=== PATIENT | male | born 1980 | race Caucasian/White ===

== ENCOUNTER 2017-02-22 15:37 | Emergency (ER) | payer SELFPAY ==
[2017-02-22 15:49] VITALS: BMI 35.7
[2017-02-22] MEDS ORDERED: NS 1000 ML 1,000 ML IV ONE (15:53)
--- NOTE | 2017-02-22 15:53 | DR.CP ---
HPI - Time Seen Time seen: 15:45 - PCP Primary Care Physician: [facility] - Complaint Chief Complaint Doctor Comments: Patient presents with complaint of increasing dyspnea since yesterday. He has a history of tachycardia and has been evaluated by digital pre press operator at [facility] since without etiology of his tachycardia or dyspnea. He got his influenza shot and admits to 1/2pack per day cigarettes. Patients chest pain level is 4-5; usually 2-3. Patient also admits to having an anxiety disorder and has been seeing a psychiatrist since 2008. There is a history of cardiac disease on his mothers side and his brother has sarcoidosis. Chief Complaint:: PT PRESENTS VERY ANXIOUS AND BREATHING DEEP C/O HAVING CP FOR A WHILE AND THAT HE HAS BEEN SEEN BY A STREET PHOTOGRAPHER AT [facility] AND HE HAS BEEN WORKED UP AT [facility] AND NO CARDIAC ABN WAS FOUND AND PT STATES HE HAS A HX OF TACKYCARDIA,, PT STATES WHEN HE DOES HAVE CP ITS NORMALLY A 2 TODAY ITS A FIVE AND IT IS ACCOMPANIED BY DIZZINESS".. - Source History Provided: Patient - Mode of Arrival Mode of Arrival: Ambulatory - Timing Onset of Chief Complaint: 02/21/17 - Location Chest Pain Radiation Location: None - Associated Signs and Symptoms Associated Signs and Symptoms: Shortness of Breath PMH - PMH Past Medical History: No Past Surgical History: No - Family History History of Family Medical Conditions: No - Social History Does patient currently use any type of tobacco product: Yes Have you used tobacco products in the last 12 months: Yes Type of Tobacco Use: Cigarettes Does any household member use tobacco: No Alcohol Use: None Do you use any recreational Drugs:: No Lives With: Family Lives Where: Home - infectious screening In the last 2 months have you had wt loss of >10#?: NO Have you had fever, night sweats or hemotysis?: No Have you traveled outside the country in the last 6 months?: No Isolation: Standard ROS - Review of Systems Eyes: No Symptoms Reported ENTM: No Symptoms Reported Respiratoy: No Symptoms Reported Cardiovascular: No Symptoms Reported Genitourinary: No Symptoms Reported Neurological: No Symptoms Reported Musculoskeletal: No Symptoms Reported Integumentary: No Symptoms Reported Hematologic/Lymphatic: No Symptoms Reported Endocrine: No Symptoms Reported Psychiatric: No Symptoms Reported All Other Systems: Reviewed and Negative PE - Vitals Vitals: Pulse Rate [Apical] 60 Pulse Rate 114 Respiratory Rate 20 Blood Pressure [Right Arm] 122/77 Blood Pressure 130/81 O2 Sat by Pulse Oximetry 97 - General General Appearance: Alert, In No Apparent Distress - Head Head Exam: Normal Inspection, Atraumatic - Eyes Eye exam: Normal Appearance, PERRL, EOMI - ENT ENT Exam: Normal Exam - Chest Chest Inspection: Normal Inspection, Symmetric Chest Wall Rise - Respiratory Respiratory Exam: Normal Lung Sounds Bilat Respiratory Exam: Bilateral Clear to Auscultation - Cardiovascular Cardiovascular Exam: Regular Rate, Normal Rhythm Pulse: Normal Edema: Normal - Abdominal Exam Abdominal Exam: Normal Inspection, Normal Bowel Sounds Abdominal Tenderness: negative: RUQ, RLQ, LUQ, LLQ, Epigastrium, Suprapubic, Diffuse, Mild, Moderate, Severe, Other - Extremities Extremities Exam: Normal Inspection, Full ROM - Back Back Exam: Normal Inspection, Full ROM - Neurologic Neurological Exam: Alert, Oriented X3, CN II-XII Intact - Psychiatric Psychiatric Exam: Normal Affect, Anxious - Skin Skin Exam: Warm, Dry, Intact Course - Reevaluation 1st: Improved - Education/Counseling Educated On: Treatment, Diagnosis, Prognosis, Needs for Follow Up ROR - Labs Reviewed Laboratory Results Reviewed?: Yes (D Dimer <100) Result Diagrams: 02/22/17 16:08 02/22/17 16:08 Laboratory: WBC 9.7 X10^3/uL (3.6-10.0) 02/22/17 16:08 RBC 4.90 X10^6/uL (4.7-6.0) 02/22/17 16:08 Hgb 15.5 g/dL (13.5-18.0) 02/22/17 16:08 Hct 43.7 % (42.0-54.0) 02/22/17 16:08 MCV 89.2 fL (80.0-100.0) 02/22/17 16:08 MCH 31.7 pg (27.0-34.0) 02/22/17 16:08 MCHC 35.5 g/dL (33.0-35.0) H 02/22/17 16:08 RDW 13.3 % (11.6-16.5) 02/22/17 16:08 Plt Count 352 X10^3/uL (150.0-450.0) 02/22/17 16:08 MPV 7.9 fL (7.4-11.0) 02/22/17 16:08 Neut % 54.8 % (42.0-75.0) 02/22/17 16:08 Lymph % 32.3 % (21.0-51.0) 02/22/17 16:08 Worth % 5.6 % (0.0-13.0) 02/22/17 16:08 Eos % 6.0 % (0.9-2.9) H 02/22/17 16:08 Baso % 1.3 % (0.2-1.0) H 02/22/17 16:08 Neut # 5.3 x10^3/uL (2.2-4.8) H 02/22/17 16:08 Lymph # 3.1 X10^3/uL (1.3-2.9) H 02/22/17 16:08 Worth # 0.5 x10^3/uL (0.3-0.8) 02/22/17 16:08 Eos # 0.6 x10^3/uL (0.0-0.2) H 02/22/17 16:08 Baso # 0.1 X10^3/uL (0.0-0.1) 02/22/17 16:08 Absolute Nucleated RBC 0.1 /100WBC 02/22/17 16:08 D-Dimer < 100 ng/mL (0-400) 02/22/17 16:08 Sodium 141 mmol/L (136-145) 02/22/17 16:08 Corrected Sodium 142 mmol/L (136-145) 02/22/17 16:08 Potassium 3.6 mmol/L (3.5-5.1) 02/22/17 16:08 Chloride 105 mmol/L (98-107) 02/22/17 16:08 Carbon Dioxide 23.4 mmol/L (21-32) 02/22/17 16:08 BUN 11 mg/dL (7-18) 02/22/17 16:08 Creatinine 1.14 mg/dL (0.70-1.30) 02/22/17 16:08 Est GFR (MDRD) Af Amer > 60 (>60) 02/22/17 16:08 Est GFR (MDRD) Non-Af > 60 (>60) 02/22/17 16:08 Glucose 133 mg/dL (65-99) H 02/22/17 16:08 Calcium 8.7 mg/dL (8.5-10.1) 02/22/17 16:08 Corrected Calcium TNP 02/22/17 16:08 Total Bilirubin 0.20 mg/dL (0.2-1.0) 02/22/17 16:08 AST 29 Units/L (15-37) 02/22/17 16:08 ALT 68 Units/L (12-78) 02/22/17 16:08 Alkaline Phosphatase 72 Units/L (46-116) 02/22/17 16:08 Creatine Kinase 86 Units/L (39-308) 02/22/17 16:08 CK-MB (CK-2) < 1.0 ng/mL (0-4.0) 02/22/17 16:08 CK/CKMB % Calc 1.2 % (<4) 02/22/17 16:08 Troponin I < 0.02 ng/mL (0-1.5) 02/22/17 16:08 C-Reactive Protein 0.60 mg/L (0-3.0) 02/22/17 16:08 Total Protein 7.1 g/dL (6.4-8.2) 02/22/17 16:08 Albumin 3.8 g/dL (3.4-5.0) 02/22/17 16:08 Globulin 3.3 g/dL (2.5-4.5) 02/22/17 16:08 Albumin/Globulin Ratio 1.2 Ratio (1.1-2.1) 02/22/17 16:08 Influenza Type A (PCR) Negative (NEGATIVE) 02/22/17 16:07 Influenza Type B (PCR) Negative (NEGATIVE) 02/22/17 16:07 - XRAY XRAY Interpreted by: Radiologist (Chest: No abnormality identified) - Diagnosis Discharge Problem: Panic attack - Discharge Plan Condition: Stable - Follow ups/Referrals Follow ups/Referrals: NFD,None [STAFF PHYSICIAN] - 3 days - Instructions
[2017-02-22] MEDS ORDERED: NS 1000 ML 1,000 ML ONE (16:06)
[2017-02-22 16:19] LABS: BASOPHILS # (AUTO) 0.1 X10^3/uL (0.0-0.1); BASOPHILS % (AUTO) 1.3 % (0.2-1.0); EOSINOPHILS # (AUTO) 0.6 x10^3/uL (0.0-0.2); HEMATOCRIT 43.7 % (42.0-54.0); HEMOGLOBIN 15.5 g/dL (13.5-18.0); LYMPHOCYTES # (AUTO) 3.1 X10^3/uL (1.3-2.9); LYMPHOCYTES % (AUTO) 32.3 % (21.0-51.0); MEAN CORPUSCULAR HEMOGLOBIN 31.7 pg (27.0-34.0); MEAN CORPUSCULAR HGB CONC 35.5 g/dL (33.0-35.0); MEAN CORPUSCULAR VOLUME 89.2 fL (80.0-100.0); MEAN PLATELET VOLUME 7.9 fL (7.4-11.0); MONOCYTES # (AUTO) 0.5 x10^3/uL (0.3-0.8); MONOCYTES % (AUTO) 5.6 % (0.0-13.0); NEUTROPHILS # (AUTO) 5.3 x10^3/uL (2.2-4.8); NEUTROPHILS % (AUTO) 54.8 % (42.0-75.0); PLATELET COUNT 352 X10^3/uL (150.0-450.0); RED CELL DISTRIBUTION WIDTH 13.3 % (11.6-16.5); WHITE BLOOD COUNT 9.7 X10^3/uL (3.6-10.0)
[2017-02-22 16:36] LABS: BLOOD UREA NITROGEN 11 mg/dL (7-18); CALCIUM 8.7 mg/dL (8.5-10.1); CARBON DIOXIDE 23.4 mmol/L (21-32); CHLORIDE 105 mmol/L (98-107); COR NA(FOR HYPERGLY) 142 mmol/L (136-145); CREATININE 1.14 mg/dL (0.70-1.30); SODIUM 141 mmol/L (136-145); TROPONIN I < 0.02 ng/mL (0-1.5); eGFR BLACK RACES > 60 (>60); eGFR NON BLACK RACES > 60 (>60)
--- NOTE | 2017-02-22 16:39 | RAD ---
Examination: Portable AP chest History: Chest pain dyspnea Findings: Normal heart size with clear lungs and pleural spaces. Impression: No abnormality demonstrated. Reported By:
[2017-02-22 16:41] LABS: ALANINE AMINOTRANSFERASE 68 Units/L (12-78); ALBUMIN 3.8 g/dL (3.4-5.0); ALKALINE PHOSPHATASE 72 Units/L (46-116); ASPARTATE AMINO TRANSFERASE 29 Units/L (15-37); CKMB % 1.2 % (<4); CREATINE KINASE 86 Units/L (39-308); CREATINE KINASE MB < 1.0 ng/mL (0-4.0); TOTAL PROTEIN 7.1 g/dL (6.4-8.2)
[2017-02-22] MEDS ORDERED: ATIVAN INJ 2 MG VIAL IVP ONE (17:07)
[2017-02-22 17:12] VITALS: BP 114/69
== END 2017-02-22 17:13 | disposition home or self-care (01) ==
LOC: ER 15:58
DX: F41.0 Panic disorder [episodic paroxysmal anxiety] (principal)
CPT/HCPCS: 36415; 71010; 80053; 82550; 82553; 84484; 85025; 85378; 86140; 87502; 93005; 93010; 96365; 99283; A4222

== ENCOUNTER 2021-07-20 12:36 | Inpatient (IN) ==
[2021-07-20] MEDS ORDERED: NS 1,000 ML IV 1,000 ML ONE (13:03)
[2021-07-20] MEDS ORDERED: ZOFRAN INJ 4 MG VIAL ONE ×2 (13:03→17:55)
[2021-07-20] MEDS ORDERED: NS 1,000 ML IV 1,000 ML IV ONE (13:09)
[2021-07-20] MEDS ORDERED: ZOFRAN INJ 4 MG VIAL IVP ONE ×2 (13:09→17:06)
[2021-07-20 14:01] LABS: BASOPHILS % (AUTO) 0.2 % (0.2-1.0); EOSINOPHILS # (AUTO) 0.6 x10^3/uL (0.0-0.2); EOSINOPHILS % (AUTO) 3.1 % (0.9-2.9); HEMATOCRIT 47.9 % (42.0-54.0); HEMOGLOBIN 16.1 g/dL (13.5-18.0); LYMPHOCYTES # (AUTO) 0.7 X10^3/uL (1.3-2.9); LYMPHOCYTES % (AUTO) 3.7 % (21.0-51.0); MEAN CORPUSCULAR HEMOGLOBIN 30.5 pg (27.0-34.0); MEAN CORPUSCULAR HGB CONC 33.6 g/dL (33.0-35.0); MEAN PLATELET VOLUME 7.9 fL (7.4-11.0); MONOCYTES # (AUTO) 0.9 x10^3/uL (0.3-0.8); NEUTROPHILS # (AUTO) 16.1 x10^3/uL (2.2-4.8); RED BLOOD COUNT 5.26 X10^6/uL (4.7-6.0); RED CELL DISTRIBUTION WIDTH 14.1 % (11.6-16.5); WHITE BLOOD COUNT 18.3 X10^3/uL (3.6-10.0)
--- NOTE | 2021-07-20 14:07 | DR.ABDMALE ---
HPI Time seen Time Seen by Provider: 07/20/21 13:48 PCP Primary Care Physician: Tomas Martinez [facility] [place] HPI comment HPI Comment: A 40 y/o male presenting with nausea, vomiting and diarrhea onset this morning. HE states that he had vomitted about thrice and loose BM 4 to 5 times so far. There is associated abdominal pain Rt. side greater than Lt. side. He has no fever. Complaint Chief Complaint:: Pt here with n/v/d and severe abdominal pain that started this morning. Pt is very tender to mild palpation in RUQ and RLQ, tender on L side but not as much as the right. COVID-19 Coronavirus risk:travel/contact w/high risk person: No Has patient experienced Coronavirus symptoms: No Mode of arrival Mode of Arrival: Ambulatory Timing Onset of Chief Complaint: 07/20/21 Came on: Gradually Duration Duration: Constant Location Location: RUQ and RLQ Severity Severity: Mild and Moderate Modifying factors Worsening Factors: Nothing PMH PMH Past Medical History: Yes Past Medical History: Asthma and Depression Past Surgical History: No Family History History of Family Medical Conditions: No Family Medical History: Diabetes Mellitus, Cancer, [place], Coronary Artery Disease and Hypertension Social History Alcohol Use: None Do you use any recreational Drugs:: No Lives With: Alone Lives Where: Home Travel Risk Coronavirus risk:travel/contact w/high risk person: No Has patient experienced Coronavirus symptoms: No Infectious screening In the last 2 months have you had wt loss of >10#?: NO Have you had fever, night sweats or hemotysis?: No Have you traveled outside the country in the last 6 months?: No Isolation: Standard ROS Review of Systems Constitutional: No Symptoms Reported Eyes: No Symptoms Reported ENTM: No Symptoms Reported Respiratoy: No Symptoms Reported Cardiovascular: No Symptoms Reported Gastrointestinal/Abdominal: Abdominal Pain, Diarrhea, Nausea and Vomiting Genitourinary: No Symptoms Reported Neurological: No Symptoms Reported Musculoskeletal: No Symptoms Reported Integumentary: No Symptoms Reported Hematologic/Lymphatic: No Symptoms Reported Endocrine: No Symptoms Reported Psychiatric: No Symptoms Reported PE Vital Signs Vital Signs: Temp Pulse Resp BP BP Pulse Ox 07/20/21 16:28 104 H 20 126/71 96 07/20/21 12:50 97.9 F 138 H 18 128/82 96 12/01/17 18:13 132/74 General Limitations: No Limitations General Appearance: Alert and In No Apparent Distress Head Head Exam: Normal Inspection, Atraumatic and Normocephalic Eyes Eye exam: Normal Appearance and EOMI ENT ENT Exam: Normal Exam, Normal Oropharynx, Normal External Ear Exam and Mucous Membranes Moist Neck Neck Exam: Normal Inspection, Full ROM and Trachea Midline Chest Chest Inspection: Normal Inspection and Symmetric Chest Wall Rise Respiratory Respiratory Exam: Normal Lung Sounds Bilat Cardiovascular Cardiovascular Exam: Regular Rate, Normal Rhythm, Normal Heart Sounds, +S1 and +S2 Abdominal Exam Abdominal Exam: Normal Inspection, Normal Bowel Sounds, Soft and Tenderness Abdominal Tenderness: Diffuse Rectal Rectal Exam: Deferred Back Back Exam: Normal Inspection and Full ROM Extremeties Extremities Exam: Normal Inspection and Full ROM Exam: Male: Deferred Neurologic Neurological Exam: Alert and Oriented X3 Psychiatric Psychiatric Exam: Normal Affect and Normal Mood Skin Skin Exam: Intact COURSE Treatment Treatment: test findings were discussed with the pt. with recommendation to observe overnight. He consented to this. I spoke with Dr. Lopez and he also agrees with watching the pt. overnight and to repeat tests in a.m. Bridge orders were written for. Reevaluation 1st: Improved Education/Counseling Education/Counseling: Patient, Family, Education and Counseling Educated On: Treatment, Diagnosis, Prognosis and Needs for Follow Up ROR Labs Reviewed Result Diagrams: 07/20/21 13:08 07/20/21 13:50 Laboratory: WBC 18.3 X10^3/uL (3.6-10.0) H 07/20/21 13:08 RBC 5.26 X10^6/uL (4.7-6.0) 07/20/21 13:08 Hgb 16.1 g/dL (13.5-18.0) 07/20/21 13:08 Hct 47.9 % (42.0-54.0) 07/20/21 13:08 MCV 91.0 fL (80.0-100.0) 07/20/21 13:08 MCH 30.5 pg (27.0-34.0) 07/20/21 13:08 MCHC 33.6 g/dL (33.0-35.0) 07/20/21 13:08 RDW 14.1 % (11.6-16.5) 07/20/21 13:08 Plt Count 387 X10^3/uL (150.0-450.0) 07/20/21 13:08 MPV 7.9 fL (7.4-11.0) 07/20/21 13:08 Neut % (Auto) 88.0 % (42.0-75.0) H 07/20/21 13:08 Lymph % (Auto) 3.7 % (21.0-51.0) L 07/20/21 13:08 Jefferson % (Auto) 5.0 % (0.0-13.0) 07/20/21 13:08 Eos % (Auto) 3.1 % (0.9-2.9) H 07/20/21 13:08 Baso % (Auto) 0.2 % (0.2-1.0) 07/20/21 13:08 Neut # (Auto) 16.1 x10^3/uL (2.2-4.8) H 07/20/21 13:08 Lymph # (Auto) 0.7 X10^3/uL (1.3-2.9) L 07/20/21 13:08 Jefferson # (Auto) 0.9 x10^3/uL (0.3-0.8) H 07/20/21 13:08 Eos # (Auto) 0.6 x10^3/uL (0.0-0.2) H 07/20/21 13:08 Baso # (Auto) 0.0 X10^3/uL (0.0-0.1) 07/20/21 13:08 Absolute Nucleated RBC 0.0 /100WBC 07/20/21 13:08 Sodium 141 mmol/L (136-145) 07/20/21 13:50 Corrected Sodium 142 mmol/L (136-145) 07/20/21 13:50 Potassium 4.6 mmol/L (3.5-5.1) 07/20/21 13:50 Chloride 107 mmol/L (98-107) 07/20/21 13:50 Carbon Dioxide 27.3 mmol/L (21-32) 07/20/21 13:50 BUN 17 mg/dL (7-18) 07/20/21 13:50 Creatinine 1.26 mg/dL (0.70-1.30) 07/20/21 13:50 Est GFR (MDRD) Af Amer > 60 (>60) 07/20/21 13:50 Est GFR (MDRD) Non-Af > 60 (>60) 07/20/21 13:50 Glucose 131 mg/dL (65-99) H 07/20/21 13:50 Calcium 8.4 mg/dL (8.5-10.1) L 07/20/21 13:50 Corrected Calcium TNP 07/20/21 13:50 Total Bilirubin 0.40 mg/dL (0.2-1.0) 07/20/21 13:50 AST 25 Units/L (15-37) 07/20/21 13:50 ALT 39 Units/L (12-78) 07/20/21 13:50 Alkaline Phosphatase 98 Units/L (46-116) 07/20/21 13:50 Total Protein 7.4 g/dL (6.4-8.2) 07/20/21 13:50 Albumin 3.7 g/dL (3.4-5.0) 07/20/21 13:50 Globulin 3.7 g/dL (2.5-4.5) 07/20/21 13:50 Albumin/Globulin Ratio 1.0 Ratio (1.1-2.1) L 07/20/21 13:50 Opioid Opioid Risk Tool Age (Juanpablo box if 16-45): Yes Total: 1 Total Score Risk Category: Low Risk Copyright: Serrano LR predicting aberrant behaviors Diagnosis Discharge Problem: Gastric distention, Pleural effusion on left, Neutrophilic leukocytosis ADDITIONAL NOTES Additional Notes Additional Notes: Name: CHRISTOPHER RIVERAcct#: [id number]: [id number] : 1980ex: MLocation: ER Order Number(s): [id number](s):ABDOMEN/PELVIS WITH CON Ordering Physician: JIMMY GARCÍA Primary Care: MARY JIMÉNEZ Service Date: 07/20/21 Service Time: 1420 HISTORY n/v/d and severe abdominal pain that started this morning. Pt is very tender to mild palpation in RUQ and RLQ, tender on L side but not as much as the right STUDY ABDOMEN/PELVIS WITH CON COMPARISON None available TECHNIQUE Multiple axial images of the abdomen and pelvis were obtained from the lung bases to the pubic symphysis after the administration of IV contrast. Dose reduction techniques including Automated Exposure Control (AEC) and adjustment of mA and kV were utilized. FINDINGS [The lung bases demonstrate a moderate left-sided pleural effusion passive atelectasis of the left lower lobe.] Moderate hepatic steatosis without focal hepatic lesion. Liver is enlarged measuring 21.6 cm in greatest dimension. The gallbladder, bile ducts, spleen, pancreas and adrenal glands are normal. The stomach is moderately dilated with fluid, the pyloric channel appears normal in thickness without evidence of obstruction. Upper GI tract is otherwise unremarkable. Small fat containing umbilical hernia. Urinary bladder is normal. Prostate gland is normal. The rectum and colon are unremarkable. The appendix is normal. IMPRESSION Unilateral moderate sized left-sided pleural with passive atelectasis of the left lower lobe. Findings are abnormal and further workup is recommended for identification of source of unilateral left-sided effusion. Fluid dilatation of the stomach without mass or narrowing to identify an outlet obstruction. Consider nasogastric tube placement for decompression. Hepatomegaly and steatosis without focal hepatic lesion. No convincing acute inflammatory process within the abdomen or pelvis. Electronically signed by: KINGSLEY PAZ (July 20, 2021 17:41:14) Report Electronically signed: 07/20/21 [id number] CC: Jimmy García
[2021-07-20 14:11] LABS: ALANINE AMINOTRANSFERASE 39 Units/L (12-78); ALBUMIN 3.7 g/dL (3.4-5.0); ALKALINE PHOSPHATASE 98 Units/L (46-116); ASPARTATE AMINO TRANSFERASE 25 Units/L (15-37); BLOOD UREA NITROGEN 17 mg/dL (7-18); CALCIUM 8.4 mg/dL (8.5-10.1); CARBON DIOXIDE 27.3 mmol/L (21-32); CHLORIDE 107 mmol/L (98-107); COR NA(FOR HYPERGLY) 142 mmol/L (136-145); CREATININE 1.26 mg/dL (0.70-1.30); SODIUM 141 mmol/L (136-145); TOTAL PROTEIN 7.4 g/dL (6.4-8.2); eGFR NON BLACK RACES > 60 (>60)
[2021-07-20] MEDS ORDERED: BENTYL I.M. INJ 10 MG IM ONE ×2 (15:08→15:10)
[2021-07-20] MEDS ORDERED: BENTYL I.M. INJ 10 MG IM SCH (17:00)
[2021-07-20] MEDS ORDERED: NS 100 ML IV 100 ML ONE (17:04)
--- NOTE | 2021-07-20 17:43 | CT ---
HISTORYn/v/d and severe abdominal pain that started this morning. Pt is very tender to mild palpation in RUQ and RLQ, tender on L side but not as much as the rightSTUDYABDOMEN/PELVIS WITH CONCOMPARISONNone availableTECHNIQUEMultiple axial images of the abdomen and pelvis were obtained from the lung bases to the pubic symphysis after the administration of IV contrast. Dose reduction techniques including Automated Exposure Control (AEC) and adjustment of mA and kV were utilized.FINDINGS[The lung bases demonstrate a moderate left-sided pleural effusion passive atelectasis of the left lower lobe.] Moderate hepatic steatosis without focal hepatic lesion. Liver is enlarged measuring 21.6 cm in greatest dimension. The gallbladder, bile ducts, spleen, pancreas and adrenal glands are normal. The stomach is moderately dilated with fluid, the pyloric channel appears normal in thickness without evidence of obstruction. Upper GI tract is otherwise unremarkable. Small fat containing umbilical hernia.Urinary bladder is normal. Prostate gland is normal. The rectum and colon are unremarkable. The appendix is normal.IMPRESSIONUnilateral moderate sized left-sided pleural with passive atelectasis of the left lower lobe. Findings are abnormal and further workup is recommended for identification of source of unilateral left-sided effusion.Fluid dilatation of the stomach without mass or narrowing to identify an outlet obstruction. Consider nasogastric tube placement for decompression.Hepatomegaly and steatosis without focal hepatic lesion.No convincing acute inflammatory process within the abdomen or pelvis.Electronically signed by: KINGSLEY PAZ (July 20, 2021 17:41:14)
[2021-07-20 20:18] LABS: AMYLASE 37 Units/L (25-115); LIPASE 77 Units/L (73-393)
[2021-07-20] MEDS ORDERED: ZOFRAN INJ 4 MG VIAL IVP PRN (22:28)
[2021-07-20 22:40] VITALS: BMI 39.5
[2021-07-20] MEDS ORDERED: DUONEB 0.5 MG/3 MG (3 mL) NEB PRN (22:48)
[2021-07-20] MEDS: CELEXA PO SCH (22:53)
[2021-07-20] MEDS: NS 1,000 ML IV 1,000 ML IV SCH (22:53)
--- NOTE | 2021-07-21 02:08 | RAD ---
HISTORYNG TUBE PLACEMENT Relevant Clinical InformationSTUDYKUBNEVADA REGIONAL MEDICAL CENTERPAROhio State Health Systemy 2021 CT abdomen pelvis.FINDINGSEvaluation of the abdomen demonstrates a nasogastric tube with its tip overlying the proximal stomach in the left upper quadrant. There is distention of the transverse colon, right hemicolon and small-bowel loops of the right lower quadrant. A small bowel obstruction versus ileus is of concern with most of the small bowel loops involved complicating within the right nel abdomen. No pathological soft tissue mass or calcification can be observed. The bony structures are grossly intact.IMPRESSION1. Nasogastric tube in situ.2. Findings are concerning for an ileus versus a developing bowel obstruction with dilated gas-filled loops of small bowel congregating within the right nel abdomen.Electronically signed by: Rema Barnard (July 21, 2021 02:06:03)
[2021-07-21 06:10] LABS: BASOPHILS % (AUTO) 0.3 % (0.2-1.0); EOSINOPHILS # (AUTO) 1.1 x10^3/uL (0.0-0.2); EOSINOPHILS % (AUTO) 12.4 % (0.9-2.9); HEMATOCRIT 41.2 % (42.0-54.0); HEMOGLOBIN 14.2 g/dL (13.5-18.0); LYMPHOCYTES # (AUTO) 2.4 X10^3/uL (1.3-2.9); LYMPHOCYTES % (AUTO) 26.9 % (21.0-51.0); MEAN CORPUSCULAR HEMOGLOBIN 31.1 pg (27.0-34.0); MEAN CORPUSCULAR HGB CONC 34.4 g/dL (33.0-35.0); MEAN CORPUSCULAR VOLUME 90.5 fL (80.0-100.0); MEAN PLATELET VOLUME 8.1 fL (7.4-11.0); MONOCYTES # (AUTO) 0.7 x10^3/uL (0.3-0.8); MONOCYTES % (AUTO) 8.1 % (0.0-13.0); NEUTROPHILS # (AUTO) 4.6 x10^3/uL (2.2-4.8); NEUTROPHILS % (AUTO) 52.3 % (42.0-75.0); RED BLOOD COUNT 4.55 X10^6/uL (4.7-6.0); WHITE BLOOD COUNT 8.9 X10^3/uL (3.6-10.0)
[2021-07-21 06:35] LABS: ALANINE AMINOTRANSFERASE 29 Units/L (12-78); ALBUMIN 3.2 g/dL (3.4-5.0); ALKALINE PHOSPHATASE 81 Units/L (46-116); ASPARTATE AMINO TRANSFERASE 23 Units/L (15-37); BLOOD UREA NITROGEN 18 mg/dL (7-18); CALCIUM 7.9 mg/dL (8.5-10.1); CARBON DIOXIDE 23.6 mmol/L (21-32); CHLORIDE 106 mmol/L (98-107); COR CA(FOR HYPOALB) 8.5 mg/dL (8.5-10.1); CREATININE 1.03 mg/dL (0.70-1.30); SODIUM 139 mmol/L (136-145); TOTAL PROTEIN 6.6 g/dL (6.4-8.2); eGFR NON BLACK RACES > 60 (>60)
[2021-07-21] MEDS: NS 1,000 ML IV 1,000 ML IV SCH ×4 (07:03→17:45)
[2021-07-21] MEDS: CELEXA PO SCH (09:05)
--- NOTE | 2021-07-21 11:00 | RAD ---
HISTORYAbdominal pain and distensionSTUDYAcute abdominal [id number]/05/2022FINDINGSHeart size is normal. Niharika are normal. Lung andre are hypoinflated but free of acute infiltrates. The left pleural effusion detected on recent CT of the abdomen is not well demonstrated on plain film. The abdominal gas pattern is nonspecific and nonobstructive. No abnormal masses or abnormal calcifications are identified. No pneumoperitoneum is identified. Regional skeleton is intact.IMPRESSIONUnremarkable acute abdominal seriesElectronically signed by: EVE COFFEY (July 21, 2021 10:58:24)
[2021-07-21] MEDS: FLAGYL IV PREMIX 500 MG BAG 500 MG/100 ML BAG IV SCH ×2 (14:19→21:11)
[2021-07-21] MEDS: CIPRO IV 400 MG PREMIX* 400 MG/200 ML IV.SOLN. IV SCH (20:18)
[2021-07-22] MEDS: NS 1,000 ML IV 1,000 ML IV SCH ×3 (03:58→06:58)
[2021-07-22] MEDS: FLAGYL IV PREMIX 500 MG BAG 500 MG/100 ML BAG IV SCH ×2 (03:58→08:06)
[2021-07-22 06:14] LABS: BASOPHILS % (AUTO) 0.2 % (0.2-1.0); EOSINOPHILS # (AUTO) 1.2 x10^3/uL (0.0-0.2); EOSINOPHILS % (AUTO) 12.9 % (0.9-2.9); HEMATOCRIT 41.6 % (42.0-54.0); HEMOGLOBIN 14.3 g/dL (13.5-18.0); LYMPHOCYTES # (AUTO) 2.8 X10^3/uL (1.3-2.9); LYMPHOCYTES % (AUTO) 30.4 % (21.0-51.0); MEAN CORPUSCULAR HEMOGLOBIN 31.3 pg (27.0-34.0); MEAN CORPUSCULAR HGB CONC 34.5 g/dL (33.0-35.0); MEAN CORPUSCULAR VOLUME 90.7 fL (80.0-100.0); MONOCYTES # (AUTO) 0.6 x10^3/uL (0.3-0.8); MONOCYTES % (AUTO) 6.6 % (0.0-13.0); NEUTROPHILS # (AUTO) 4.6 x10^3/uL (2.2-4.8); NEUTROPHILS % (AUTO) 49.9 % (42.0-75.0); RED BLOOD COUNT 4.58 X10^6/uL (4.7-6.0); WHITE BLOOD COUNT 9.2 X10^3/uL (3.6-10.0)
[2021-07-22 06:23] LABS: ALANINE AMINOTRANSFERASE 34 Units/L (12-78); ALBUMIN 3.3 g/dL (3.4-5.0); ALKALINE PHOSPHATASE 84 Units/L (46-116); ASPARTATE AMINO TRANSFERASE 24 Units/L (15-37); BLOOD UREA NITROGEN 10 mg/dL (7-18); CALCIUM 8.3 mg/dL (8.5-10.1); CARBON DIOXIDE 26.9 mmol/L (21-32); CHLORIDE 106 mmol/L (98-107); COR CA(FOR HYPOALB) 8.9 mg/dL (8.5-10.1); CREATININE 0.97 mg/dL (0.70-1.30); SODIUM 140 mmol/L (136-145); TOTAL PROTEIN 6.7 g/dL (6.4-8.2); eGFR NON BLACK RACES > 60 (>60)
[2021-07-22] MEDS: CELEXA PO SCH (08:06)
--- NOTE | 2021-07-22 09:46 | RAD ---
HISTORYPleural effusionSTUDYChest AP portableCOMPARISONNoneFINDINGSHeart size is normal. Niharika are normal. Lung andre are clear. No pleural effusion or pneumothorax is identified. Bony thorax is unremarkable.IMPRESSIONNo significant abnormality identifiedElectronically signed by: EVE COFFEY (July 22, 2021 09:45:17)
[2021-07-22] MEDS: CIPRO IV 400 MG PREMIX* 400 MG/200 ML IV.SOLN. IV SCH (09:59)
[2021-07-22 12:34] VITALS: BP 123/77
--- NOTE | 2021-08-17 16:39 | DR.PROGNOT ---
Hospital Progress Notes - Progress Note for Day of: Progress Note Date: 07/21/21 - Chief Complaint Chief Complaint: still having diffuse abdominal pain with nausea .. no vomiting .. abdominal Xray showed no obstruction today .. WBC is normal . - Past Medical Family Social History Past Med/Fam/Surg Hx: No changes since H&P Allergies: Allergies cashew nut Allergy (Verified 07/20/21 13:09) - Review Of Systems ROS: No change since H&P - Vital Signs Vital Signs: Temperature 98.1 F Pulse Rate [Left Radial] 64 Pulse Rate 78 Respiratory Rate 20 Blood Pressure [Right Arm] 123/77 Blood Pressure 126/71 O2 Sat by Pulse Oximetry 96 - Physical Exam Oriented: Normal Eyes: Normal Ear: Normal Nose: Normal Respiratory: Normal Cardiovascular: Normal : Normal GI:Auscultation: Decreased GI:Palpation: Normal GI: Tenderness: Diffuse (soft and full abdomen with diffuse tenderness ..no rebound ) Speech Pattern: Clear, Appropriate - Laboratory and Diagnostics Result Diagrams: 07/22/21 05:40 07/22/21 05:40 Labs: Laboratory WBC 9.2 X10^3/uL (3.6-10.0) 07/22/21 05:40 RBC 4.58 X10^6/uL (4.7-6.0) L 07/22/21 05:40 Hgb 14.3 g/dL (13.5-18.0) 07/22/21 05:40 Hct 41.6 % (42.0-54.0) L 07/22/21 05:40 MCV 90.7 fL (80.0-100.0) 07/22/21 05:40 MCH 31.3 pg (27.0-34.0) 07/22/21 05:40 MCHC 34.5 g/dL (33.0-35.0) 07/22/21 05:40 RDW 14.0 % (11.6-16.5) 07/22/21 05:40 Plt Count 323 X10^3/uL (150.0-450.0) 07/22/21 05:40 MPV 8.0 fL (7.4-11.0) 07/22/21 05:40 Neut % (Auto) 49.9 % (42.0-75.0) 07/22/21 05:40 Lymph % (Auto) 30.4 % (21.0-51.0) 07/22/21 05:40 [place] % (Auto) 6.6 % (0.0-13.0) 07/22/21 05:40 Eos % (Auto) 12.9 % (0.9-2.9) H 07/22/21 05:40 Baso % (Auto) 0.2 % (0.2-1.0) 07/22/21 05:40 Neut # (Auto) 4.6 x10^3/uL (2.2-4.8) 07/22/21 05:40 Lymph # (Auto) 2.8 X10^3/uL (1.3-2.9) 07/22/21 05:40 [place] # (Auto) 0.6 x10^3/uL (0.3-0.8) 07/22/21 05:40 Eos # (Auto) 1.2 x10^3/uL (0.0-0.2) H 07/22/21 05:40 Baso # (Auto) 0.0 X10^3/uL (0.0-0.1) 07/22/21 05:40 Absolute Nucleated RBC 0.1 /100WBC 07/22/21 05:40 Sodium 140 mmol/L (136-145) 07/22/21 05:40 Corrected Sodium TNP 07/22/21 05:40 Potassium 3.9 mmol/L (3.5-5.1) 07/22/21 05:40 Chloride 106 mmol/L (98-107) 07/22/21 05:40 Carbon Dioxide 26.9 mmol/L (21-32) 07/22/21 05:40 BUN 10 mg/dL (7-18) 07/22/21 05:40 Creatinine 0.97 mg/dL (0.70-1.30) 07/22/21 05:40 Est GFR (MDRD) Af Amer > 60 (>60) 07/22/21 05:40 Est GFR (MDRD) Non-Af > 60 (>60) 07/22/21 05:40 Glucose 96 mg/dL (65-99) 07/22/21 05:40 POC Glucose (mg/dL) 79 mg/dL (65-99) 07/21/21 23:14 Calcium 8.3 mg/dL (8.5-10.1) L 07/22/21 05:40 Corrected Calcium 8.9 mg/dL (8.5-10.1) 07/22/21 05:40 Total Bilirubin 0.40 mg/dL (0.2-1.0) 07/22/21 05:40 AST 24 Units/L (15-37) 07/22/21 05:40 ALT 34 Units/L (12-78) 07/22/21 05:40 Alkaline Phosphatase 84 Units/L (46-116) 07/22/21 05:40 Total Protein 6.7 g/dL (6.4-8.2) 07/22/21 05:40 Albumin 3.3 g/dL (3.4-5.0) L 07/22/21 05:40 Globulin 3.4 g/dL (2.5-4.5) 07/22/21 05:40 Albumin/Globulin Ratio 1.0 Ratio (1.1-2.1) L 07/22/21 05:40 Amylase 37 Units/L (25-115) 07/20/21 20:04 Lipase 77 Units/L (73-393) 07/20/21 20:04 SARS-CoV-2 (PCR) Negative (NEGATIVE) 07/20/21 19:53 - Assessment and Plan 1: subsuding abdominal pain with ileus .. pleural effusion .. to advance diet and repeat chest X Ray and KUB in am .. - Problem Patient Problems: Patient Problems Gastric distention (Acute) K31.89 Pleural effusion on left (Acute) J90 Neutrophilic leukocytosis (Acute) D72.9
== END 2021-07-22 15:05 | disposition home or self-care (01) | DRG 187 ==
LOC: ER 12:36 → MED/SURG 19:54
PROVIDERS: ADMIT Surgery; ATTEND Surgery